=== PATIENT | female | born 1990 | race Caucasian/White ===

== ENCOUNTER 2020-05-07 16:00 | Emergency (ER) | payer OTHER, SELFPAY ==
[2020-05-07 16:31] VITALS: BP 111/69; PULSE 77; RESP 14; TEMP 36.8; O2SAT 100; BMI 22.6
--- NOTE | 2020-05-07 16:37 | DI.RAD.S_ITS ---
PROCEDURE: XR FOREARM RT 2V INDICATIONS: fall TECHNIQUE: 2 views of the forearm were acquired. COMPARISON: [facility], CR, XR WRIST RT MIN 3V, 05/07/2020, 16:43. [facility], CR, XR ELBOW RT MIN 3V, 05/07/2020, 16:43. FINDINGS: Bones: No fractures or dislocations. No suspicious bony lesions. Soft tissues: No suspicious soft tissue calcifications or masses. IMPRESSION: No displaced fractures are seen on this plain film study. Dictated by: Cheikh Grace M.D. on 05/07/2020 at 16:12 Approved by: Cheikh Grace M.D. on 05/07/2020 at 16:12
--- NOTE | 2020-05-07 16:37 | DI.RAD.S_ITS ---
PROCEDURE: XR WRIST RT MIN 3V INDICATIONS: fall TECHNIQUE: 4 views of the wrist were acquired. COMPARISON: [facility], CR, XR ELBOW RT MIN 3V, 05/07/2020, 16:43. [facility], CR, XR FOREARM RT 2V, 05/07/2020, 16:43. FINDINGS: Bones: No fractures or dislocations. No suspicious bony lesions. Scaphoid view: No navicular fractures are seen. The scaphoid view is suboptimal. Soft tissues: No suspicious soft tissue calcifications. IMPRESSION: No displaced fractures are seen. If there is snuffbox tenderness, please return this patient to Radiology for a repeat scaphoid image, which would be performed at no additional charge to the patient. (If an additional scaphoid image is performed, an addendum will be issued to this report.) If there is point tenderness (or other clinical suspicion for a fracture not seen on these images) then a dedicated CT could be considered for further evaluation, as clinically appropriate. Dictated by: Cheikh Grace M.D. on 05/07/2020 at 16:13 Approved by: Cheikh Grace M.D. on 05/07/2020 at 16:15
--- NOTE | 2020-05-07 16:37 | DI.RAD.S_ITS ---
PROCEDURE: XR ELBOW RT MIN 3V INDICATIONS: fall TECHNIQUE: 3 views of the elbow were acquired. COMPARISON: [facility], CR, XR WRIST RT MIN 3V, 05/07/2020, 16:43. [facility], CR, XR FOREARM RT 2V, 05/07/2020, 16:43. FINDINGS: Bones: No fractures or dislocations. No suspicious bony lesions. Soft tissues: No elbow joint effusion. No suspicious soft tissue calcifications. IMPRESSION: Unremarkable elbow plain films. Dictated by: Cheikh Grace M.D. on 05/07/2020 at 16:11 Approved by: Cheikh Grace M.D. on 05/07/2020 at 16:12
--- NOTE | 2020-05-07 17:29 | ED_ITS ---
HPI - Extremity Injury (Upper) General Chief Complaint: Extremity Injury, Upper Stated Complaint: fell down stairs, hurt right wrist Time Seen by Provider: 05/07/20 16:05 Source: patient Mode of arrival: Ambulatory Limitations: no limitations History of Present Illness HPI narrative: 29-year-old female nonsmoker with noncontributory medical history presents with a family friend in the chief complaint of mechanical fall with an injury to her right forearm. She was walking down some but stairs with her dogs which were being a bit rambunctious, she slipped and fell onto her arm. She has increased pain with range of motion and improvement with rest. She denies any head neck or back pain. She denies any loss of consciousness nor nausea or vomiting. She denies any fever chills. complaint: injury to: right Onset (ago): hour(s) Other Extremity Injury: Right: forearm Other injuries: none Handedness: right Place: home Severity: mild Relieving factors: rest Context: fall and direct blow Associated symptoms: denies other symptoms Related Data Allergies Allergy/AdvReac Type Severity Reaction Status Date / Time No Known Drug Allergies Allergy Verified 05/07/20 16:36 Review of Systems Constitutional Constitutional: Denies chills, Denies fatigue, Denies fever(s), Denies frequent falls, Denies lethargy and Denies weakness Eyes Eyes: Denies change in vision, Denies eye discharge, Denies irritation and Denies loss of vision ENT Ears, Nose, Mouth, and Throat: Denies change in voice, Denies dizziness, Denies neck pain, Denies sore throat and Denies throat swelling Cardiovascular Cardiovascular: Denies chest pain, Denies irregular heart rhythm, Denies lightheadedness, Denies palpitations, Denies dyspnea, Denies dyspnea on exertion and Denies orthopnea Respiratory Respiratory: Denies cough, Denies dyspnea, Denies dyspnea on exertion and Denies wheezing Gastrointestinal Gastrointestinal: Denies abdominal pain, Denies change in bowel habits, Denies diarrhea, Denies nausea and Denies vomiting Musculoskeletal Musculoskeletal: Denies neck pain and Denies numbness Integumentary/Breasts Skin/Breast: Denies pruritus, Denies erythema, Denies rash and Denies wounds Neurologic Neurologic: Denies behavioral changes, Denies confusion, Denies dizziness, Denies frequent falls, Denies loss of vision, Denies numbness and Denies weakness Psychiatric Psychiatric: Denies anxiety, Denies behavioral changes, Denies confusion, Denies depression, Denies homicidal ideation and Denies suicidal ideation Endocrine Endocrine: Denies fatigue, Denies flushing and Denies palpitations Hematologic/Lymphatic Hematologic/Lymphatic: Denies easy bruising Allergic/Immunologic Allergic/Immunologic: Denies urticaria, Denies throat swelling and Denies wheezing Patient History Social History Smoking Status: Never smoker Smoking Status: Never smoker alcohol intake frequency: 0-2 drinks per day Substance Use Type: does not use Exam Narrative Exam Narrative: GENERAL: [29] year old patient appears stated age. Well- nourished, well-developed patient, in mild distress. GCS 15 HEAD: Atraumatic. Normocephalic. EYES: Pupils equal round and reactive. Extraocular motions intact. No scleral icterus. No injection or drainage. ENT: Nose without bleeding, purulent drainage. Throat without erythema, tonsillar hypertrophy or exudate. Airway patent. NECK: Trachea midline. Non tender CARDIOVASCULAR: Regular rate and rhythm without murmurs, gallops, or rubs. RESPIRATORY: Clear to auscultation. Breath sounds equal bilaterally. No wheezes, rales, or rhonchi. GASTROINTESTINAL: Abdomen soft, non-tender, nondistended. EXTREMITIES: Mild swelling with abrasion overlying distal forearm, majority of tenderness here. No pain with palpation of anatomic snuffbox. No pain with axial loading of the thumb. No edema or joint tenderness. BACK: Nontender without deformity or crepitance. No flank tenderness. NEURO: AOx3. SKIN: No rash or erythema of visible areas Initial Vital Signs Initial Vital Signs: Vital Signs Temperature 98.2 F 05/07/20 16:31 Pulse Rate 77 05/07/20 16:31 Respiratory Rate 14 05/07/20 16:31 Blood Pressure 111/69 05/07/20 16:31 Pulse Oximetry 100 05/07/20 16:31 Course Orders Ordered: ED Orders 05/07/20 16:37 XR elbow RT min 3V Stat XR forearm RT 2V Stat XR wrist RT min 3V Stat Vital Signs Vital signs: Vital Signs - 8 hr 05/07/20 16:31 Temperature 98.2 F Pulse Rate 77 Respiratory Rate 14 Blood Pressure 111/69 Pulse Oximetry 100 MDM - Extremity Injury (Upper) Imaging Data Extremity x-ray #1: Radiologist's Impression: Nga Pollard V 29 F [address] [id number] ReportSigned Patient: Nga Pollard VMR#: [id number]: 1990Acct:[id number]/Sex: 29 / FDate of Service: 05/07/20Loc: EDAccession Number: [id number] Procedure: XR wrist RT min 3V Ordering Provider: Joe Rowe D.O. PROCEDURE: XR WRIST RT MIN 3V INDICATIONS: fall TECHNIQUE: 4 views of the wrist were acquired. COMPARISON: [facility], CR, XR ELBOW RT MIN 3V, 05/07/2020, 16:43. [facility], CR, XR FOREARM RT 2V, 05/07/2020, 16:43. FINDINGS: Bones: No fractures or dislocations. No suspicious bony lesions. Scaphoid view: No navicular fractures are seen. The scaphoid view is suboptimal. Soft tissues: No suspicious soft tissue calcifications. IMPRESSION: No displaced fractures are seen. If there is snuffbox tenderness, please return this patient to Radiology for a repeat scaphoid image, which would be performed at no additional charge to the patient. (If an additional scaphoid image is performed, an addendum will be issued to this report.) If there is point tenderness (or other clinical suspicion for a fracture not seen on these images) then a dedicated CT could be considered for further evaluation, as clinically appropriate. Dictated by: Cheikh Grace M.D. on 05/07/2020 at 16:13 Approved by: Cheikh Grace M.D. on 05/07/2020 at 16:15 Extremity x-ray #2: Radiologist's Impression: Chart Viewer Diagnostics DATE TYPE STATUS REF RANGE/AUTHOR Tone Today 16:37 Cheikh Grace Today 16:37 Cheikh Grace Today 16:37 Cheikh Grace Nga Pollard V 29, F010/19/1990 [facility] 3A 167.64cm 63.503kg BMI: 22.6kg/m? Extremity Injury, Upper Search Chart No Data to Display No Data to Display ONSET Today 16:31 Nga Pollard V 29 F [address] [id number] ReportSigned Patient: Nga Pollard VMR#: [id number]: 1990Acct:[id number]/Sex: 29 / FDate of Service: 05/07/20Loc: EDAccession Number: [id number] Procedure: XR forearm RT 2V Ordering Provider: Joe Rowe D.O. PROCEDURE: XR FOREARM RT 2V INDICATIONS: fall TECHNIQUE: 2 views of the forearm were acquired. COMPARISON: [facility], CR, XR WRIST RT MIN 3V, 05/07/2020, 16:43. [facility], CR, XR ELBOW RT MIN 3V, 05/07/2020, 16:43. FINDINGS: Bones: No fractures or dislocations. No suspicious bony lesions. Soft tissues: No suspicious soft tissue calcifications or masses. IMPRESSION: No displaced fractures are seen on this plain film study. Dictated by: Cheikh Grace M.D. on 05/07/2020 at 16:12 Approved by: Cheikh Grace M.D. on 05/07/2020 at 16:12 Extremity x-ray #3: Radiologist's Impression: Chart Viewer Diagnostics DATE TYPE STATUS REF RANGE/AUTHOR Hx Today 16:37 Cheikh Grace Today 16:37 Cheikh Grace Today 16:37 Cheikh Grace Nga Pollard V 29, F010/19/1990 [facility] ED 3A 167.64cm 63.503kg BMI: 22.6kg/m? Extremity Injury, Upper Search Chart No Data to Display No Data to Display ONSET Today 16:31 Nga Pollard V 29 F [address] [id number] ReportSigned Patient: Nga Pollard VMR#: [id number]: 1990Acct:[id number]/Sex: 29 / FDate of Service: 05/07/20Loc: EDAccession Number: [id number] Procedure: XR elbow RT min 3V Ordering Provider: Joe Rowe D.O. PROCEDURE: XR ELBOW RT MIN 3V INDICATIONS: fall TECHNIQUE: 3 views of the elbow were acquired. COMPARISON: [facility], CR, XR WRIST RT MIN 3V, 05/07/2020, 16:43. [facility], CR, XR FOREARM RT 2V, 05/07/2020, 16:43. FINDINGS: Bones: No fractures or dislocations. No suspicious bony lesions. Soft tissues: No elbow joint effusion. No suspicious soft tissue calcifications. IMPRESSION: Unremarkable elbow plain films. Dictated by: Cheikh Grace M.D. on 05/07/2020 at 16:11 Approved by: Cheikh Grace M.D. on 05/07/2020 at 16:12 Discharge Plan Departure Patient Disposition: Home Clinical Impression: Contusion of forearm, right Qualifiers: Encounter type: initial encounter Qualified Code(s): S50.11XA - Contusion of right forearm, initial encounter Instructions: DI for Contusion Activity Restrictions/Additional Instructions: *You have been diagnosed with [fall with forearm contusion] *What to do: *Take medications as directed: Tylenol or Motrin for pain, ice may help with swelling *Follow up with your primary care provider in 2-3 days, call for an appoint ment. Let them know you were seen in the Emergency Department and that we ask that you be seen in follow up *Return to ER if you should have any new, worsening or concerning symptoms
--- NOTE | 2020-05-07 17:31 | PC.NURSE ---
patient fell down stairs while taking her dogs out. She says that she is in pain in her middle back at about a 4/10. She does not have any bony abnormalities. Her x-rays are negative for fracture
[2020-05-07 17:36] VITALS: BP 110/73; PULSE 74; RESP 14; O2SAT 98
== END 2020-05-07 17:38 | disposition home or self-care (01) ==
PROVIDERS: Emergency Provider Emergency Medicine
DX: S50.11XA Contusion of right forearm, initial encounter (principal); W10.9XXA Fall (on) (from) unspecified stairs and steps, initial encounter
CPT/HCPCS: 73080; 73090; 73110; 99283

== ENCOUNTER 2021-05-17 08:20 | Emergency (ER) | payer OTHER, MEDICAID, SELFPAY ==
[2021-05-17 08:25] VITALS: BP 105/64; PULSE 77; RESP 18; TEMP 36.6; O2SAT 98
--- NOTE | 2021-05-17 08:43 | ED.FEVER ---
HPI - Fever General Chief Complaint: Fever Stated Complaint: Fever Time Seen by Provider: 05/17/21 08:42 Source: patient Mode of arrival: Ambulatory History of Present Illness HPI Narrative: Patient here for fever this morning. Patient works in daycare. She is COVID vaccinated. Has had flu shot as well. Is here for COVID and viral swab testing. No nausea vomiting. No body aches, no cough or dyspnea. Patient in no distress Related Data Allergies Allergy/AdvReac Type Severity Reaction Status Date / Time No Known Drug Allergies Allergy Verified 05/07/20 16:36 Review of Systems Review of Systems Narrative: GENERAL: Denies chills, fatigue, malaise, positive for fever, negative sweats. HEENT: Denies sinus pain, ear pain, sore throat RESPIRATORY: Denies dyspnea, cough CARDIOVASCULAR: Denies chest pain, palpitations GASTROINTESTINAL: Denies nausea, vomiting, abdominal pain : Denies dysuria, frequency, hematuria MUSCULOSKELETAL: denies muscle or bony pain SKIN: Denies rash, skin lesions NEUROLOGIC: Denies weakness, numbness ROS Unobtainable: All systems reviewed & are unremarkable except as noted in HPI and below Patient History Social History Smoking Status: Never smoker Smoking Status: Never smoker alcohol intake frequency: 0-2 drinks per day Substance Use Type: does not use Exam Narrative Exam Narrative: GENERAL: in no distress, not toxic not dyspneic HEAD: Normocephalic. EYES: Pupils equal round No scleral icterus. ENT: Mucous membranes moist. NECK: Trachea midline. CARDIOVASCULAR: Regular rate and rhythm without murmurs RESPIRATORY: Clear to auscultation. Breath sounds equal bilaterally. No wheezes, rales, or rhonchi. Speaking full sentences BACK: No flank tenderness. NEURO: AOx4. SKIN: Warm and dry PSYCH: Not anxious, is cooperative Initial Vital Signs Initial Vital Signs: Vital Signs Temperature 98 F 05/17/21 08:25 Pulse Rate 77 05/17/21 08:25 Respiratory Rate 18 05/17/21 08:25 Blood Pressure 105/64 05/17/21 08:25 Pulse Oximetry 98 05/17/21 08:25 Course Course Course Narrative: No new issues during course of stay Orders Ordered: ED Orders 05/17/21 08:45 Respiratory Panel (Film Array) Stat Reevaluation(s) Reevaluation #1: Reviewed results with patient. Understands needs to quarantine 10 days from today. Return precautions reviewed with her Time: 09:44 Vital Signs Vital signs: Vital Signs - 8 hr 05/17/21 08:25 Temperature 98 F Pulse Rate 77 Respiratory Rate 18 Blood Pressure 105/64 Pulse Oximetry 98 MDM - Fever Differential Diagnosis Differential diagnosis: Likely viral infection, influenza and other (COVID infection) Lab Data Labs: Lab Results 05/17/21 Range/Units 08:45 Chlamy pneumoniae PCR Not detected (Not Detect) Adenovirus (PCR) Not detected (Not Detect) B. pertussis DNA (PCR) Not detected (Not Detecte) B.parapertussis DNA PCR Not detected (Not Detecte) Coronavirus OC43 (PCR) Not detected (Not Detect) Coronavirus HKU1 (PCR) Not detected (Not Detect) Coronavirus 229E (PCR) Not detected (Not Detect) SARS-CoV-2 (PCR) Detected H (Not Detecte) Coronavirus NL63 (PCR) Not detected (Not Detect) Human Metapneumovir PCR Not detected (Not Detect) Influenza Type A (PCR) Not detected (Not Detect) Influenza Type B (PCR) Not detected (Not Detect) M. pneumoniae (PCR) Not detected (Not Detect) Parainfluenza 1 (PCR) Not detected (Not Detect) Parainfluenza 2 (PCR) Not detected (Not Detect) Parainfluenza 3 (PCR) Not detected (Not Detect) Parainfluenza 4 (PCR) Detected H (Not Detect) RSV (PCR) Not detected (Not Detect) Entero/Rhino (PCR) Not detected (Not Detect) MDM Narrative Medical decision making narrative: Appropriate for discharge home. No blood work or imaging indicated. 98% room air. No dyspnea. No tachycardia or tachypnea. Return precautions reviewed patient. Work note provided. Discharge Plan Departure Patient Disposition: Home Clinical Impression: COVID-19, Parainfluenza infection Instructions: DI for Viral Syndrome, DI for COVID-19 (Suspected or Confirmed ) Activity Restrictions/Additional Instructions: You have tested positive for parainfluenza as well as COVID-19. You must quarantine 10 days starting from today. Return in 4 to ring questions or concerns or any trouble breathing. May continue home Tylenol or ibuprofen for fever aches and pains. Keep well hydrated. Stand Alone Forms: Work Release Note
[2021-05-17 09:37] LABS: Adenovirus Not Detected (Not Detect); Coronavirus 229E Not Detected (Not Detect); Coronavirus HKU1 Not Detected (Not Detect); Coronavirus NL 63 Not Detected (Not Detect); Coronavirus OC43 Not Detected (Not Detect); Human Metapneumovirus Not Detected (Not Detect); Human Rhinovirus/Enterovirus Not Detected (Not Detect); Influenza A Not Detected (Not Detect); Influenza B Not Detected (Not Detect); Parainfluenza Virus 1 Not Detected (Not Detect); Parainfluenza Virus 2 Not Detected (Not Detect); Parainfluenza Virus 3 Not Detected (Not Detect)
[2021-05-17 09:38] LABS: B. parapertussis Not Detected (Not Detecte); Bordetella pertussis Not Detected (Not Detecte); Chlamydophila pneumoniae Not Detected (Not Detect); Mycoplasma pneumoniae Not Detected (Not Detect); Parainfluenza Virus 4 Detected (Not Detect); Respiratory Syncytial Virus Not Detected (Not Detect)
[2021-05-17 09:39] LABS: SARS- CoV-2 Detected (Not Detecte)
== END 2021-05-17 09:51 | disposition home or self-care (01) ==
PROVIDERS: Emergency Provider Emergency Medicine
DX: U07.1 COVID-19 (principal); B34.8 Other viral infections of unspecified site
CPT/HCPCS: 87633; 99281; 99282